=== PATIENT | female | born 1995 | race Caucasian/White ===

== ENCOUNTER 2018-03-23 09:07 | Emergency (ER) | payer BC ==
--- NOTE | 2018-03-23 09:32 | UC ---
Ear Complaint HPI - HPI Summary HPI Summary: 22-year-old woman comes to clinic today with a chief complaint of left ear pain. She's been having upper respiratory tract infection symptoms for more than 2 weeks with rhinorrhea and a mild sore throat. Both ears feel clogged the left one has become painful. No recent fevers. [id number] medications help some but overall condition is getting worse. - History of Current Complaint Chief Complaint: UCEar Stated Complaint: EAR PAIN Time Seen by Provider: 03/23/18 09:21 Hx Last Menstrual Period: 03/22/18 Pain Intensity: 3 - Allergies/Home Medications Allergies/Adverse Reactions: Allergies Allergy/AdvReac Type Severity Reaction Status Date / Time No Known Allergies Allergy Verified 03/23/18 09:20 PMH/Surg Hx/FS Hx/Imm Hx Previously Healthy: Yes - Surgical History Surgical History: None - Family History Known Family History: Positive: Non-Contributory - Social History Alcohol Use: Occasionally Substance Use Type: None Smoking Status (MU): Never Smoked Tobacco Review of Systems All Other Systems Reviewed And Are Negative: Yes Constitutional: Positive: Negative Skin: Positive: Negative Eyes: Positive: Negative ENT: Positive: Sore Throat, Ear Ache, Nasal Discharge, Sinus Congestion Respiratory: Positive: Negative Cardiovascular: Positive: Negative Gastrointestinal: Positive: Negative Motor: Positive: Negative Neurovascular: Positive: Negative Musculoskeletal: Positive: Negative Neurological: Positive: Negative Psychological: Positive: Negative Is Patient Immunocompromised?: No Physical Exam Triage Information Reviewed: Yes Appearance: Well-Appearing, No Pain Distress, Well-Nourished Vital Signs: Initial Vital Signs Temp 96.7 F 03/23/18 09:16 Pulse 100 03/23/18 09:16 Resp 20 03/23/18 09:16 BP 94/50 03/23/18 09:16 Pulse Ox 100 03/23/18 09:16 Vital Signs Reviewed: Yes Eye Exam: Normal Eyes: Positive: Conjunctiva Clear ENT: Positive: Pharyngeal erythema, Nasal congestion, Nasal drainage, TM bulging - LEFT, TM red - LEFT, Other - TONSILS 1+ WITHOUT EXUDATES Neck exam: Normal Neck: Positive: Supple Respiratory: Positive: Lungs clear, Normal breath sounds, No respiratory distress Cardiovascular: Positive: RRR Musculoskeletal Exam: Normal Musculoskeletal: Positive: Strength Intact, ROM Intact Neurological Exam: Normal Neurological: Positive: Alert, Muscle Tone Normal Psychological Exam: Normal Psychological: Positive: Age Appropriate Behavior Skin Exam: Normal Ear Complaint Course/Dx - Differential Dx/Diagnosis Provider Diagnosis: Left otitis media Discharge - Sign-Out/Discharge Documenting (check all that apply): Patient Departure All imaging exams completed and their final reports reviewed: No Studies - Discharge Plan Condition: Stable Disposition: HOME Prescriptions: Amoxicillin/Clavulanate TAB* [Augmentin TAB 875*] 875 mg PO BID #20 tab Patient Education Materials: Ear Infection (ED) Referrals: Sunday DE LA CRUZ,Sky Mandjuano [Primary Care Provider] - Additional Instructions: FOLLOW UP WITH YOUR DOCTOR IF NOT COMPLETELY IMPROVED. GET RECHECKED FOR ANY WORSENING OF YOUR CONDITION OR QUESTIONS OR CONCERNS. - Billing Disposition and Condition Condition: STABLE Disposition: Home
== END 2018-03-23 09:40 | disposition home or self-care (01) ==
LOC: UCEAST 09:07
DX: H66.92 Otitis media, unspecified, left ear (principal)
CPT/HCPCS: 99202; G0463

== ENCOUNTER 2018-10-03 19:01 | Emergency (ER) | payer BC ==
[2018-10-03 19:14] VITALS: BP 106/68
--- NOTE | 2018-10-03 19:46 | UC ---
Complaint Female HPI - HPI Summary HPI Summary: 22 yo female with mild dysurai/urgency and frequency x 1-2 weeks about 3 wks ago treated herself for a yeast infection denies vag d/c or itch sonce these symptoms started no vulvar sores - History Of Current Complaint Chief Complaint: UCGU Stated Complaint: BURNING URINATION Time Seen by Provider: 10/03/18 19:25 Hx Obtained From: Patient Hx Last Menstrual Period: 09/20/18 Onset/Duration: Gradual Onset, Lasting Weeks Timing: Constant Severity Initially: Mild Severity Currently: Mild Pain Intensity: 0 Pain Scale Used: 0-10 Numeric Character: Burning Aggravating Factor(s): Urination Associated Signs And Symptoms: Negative: Fever, Back Pain, Vaginal Bleeding/ Discharge, Vaginal Discharge, Nausea, Vomiting(# Of Episodes =), Genital Swelling, Genital Blisters, Retained Foregin Body (Specify) - Allergies/Home Medications Allergies/Adverse Reactions: Allergies Allergy/AdvReac Type Severity Reaction Status Date / Time No Known Allergies Allergy Verified 10/03/18 19:14 Home Medications: Home Medications NK [No Home Medications Reported] 10/03/18 [History Confirmed 10/03/18] PMH/Surg Hx/FS Hx/Imm Hx Previously Healthy: Yes - Surgical History Surgical History: None - Family History Known Family History: Positive: Hypertension, Non-Contributory - Social History Alcohol Use: Occasionally Substance Use Type: None Smoking Status (MU): Current Some Day Smoker Review of Systems All Other Systems Reviewed And Are Negative: Yes Constitutional: Positive: Negative Skin: Positive: Negative Eyes: Positive: Negative ENT: Positive: Negative Respiratory: Positive: Negative Cardiovascular: Positive: Negative Gastrointestinal: Positive: Negative Genitourinary: Positive: Dysuria, Frequency, Urgency Motor: Positive: Negative Neurovascular: Positive: Negative Musculoskeletal: Positive: Negative Neurological: Positive: Negative Psychological: Positive: Negative Physical Exam Triage Information Reviewed: Yes Appearance: Well-Appearing, No Pain Distress, Well-Nourished Vital Signs: Initial Vital Signs Temp 98.7 F 10/03/18 19:08 Pulse 68 10/03/18 19:08 Resp 12 10/03/18 19:08 BP 106/68 10/03/18 19:08 Pulse Ox 98 10/03/18 19:08 Vital Signs Reviewed: Yes Eyes: Positive: Conjunctiva Clear ENT: Positive: Hearing grossly normal. Negative: Nasal congestion, Nasal drainage, Tonsillar swelling, Tonsillar exudate, Trismus, Muffled voice, Hoarse voice, Uvula midline Neck: Positive: Supple, Nontender, No Lymphadenopathy Respiratory: Positive: Lungs clear, Normal breath sounds, No respiratory distress, No accessory muscle use Cardiovascular: Positive: RRR, No Murmur Abdomen Description: Positive: Nontender, No Organomegaly, Soft. Negative: CVA Tenderness (R), CVA Tenderness (L) Bowel Sounds: Positive: Present Musculoskeletal: Positive: ROM Intact, No Edema Neurological: Positive: Alert Psychological Exam: Normal Skin Exam: Normal Complaint Female Dx - Course Course Of Treatment: UA negative - Differential Dx/Diagnosis Provider Diagnosis: Dysuria Discharge - Sign-Out/Discharge Documenting (check all that apply): Patient Departure All imaging exams completed and their final reports reviewed: No Studies - Discharge Plan Condition: Stable Disposition: HOME Patient Education Materials: Dysuria (ED) Referrals: Sunday DE LA CRUZ,Sky Mandujano [Primary Care Provider] - 5 Days (if not better) Additional Instructions: Your urine looked clear a urine culture is pending as well as other tests recheck for new or worsening symptoms we will contact you if anyting turns up on your tests - Billing Disposition and Condition Condition: STABLE Disposition: Home
--- NOTE | 2018-10-04 16:59 | UC ---
- Progress Note Progress Note: + garnerella rx flagyl sent - please reviewed no ETOH 48 hours before after neg trich neg gordon Ljj Course/Dx - Diagnoses Provider Diagnoses: Dysuria Discharge - Sign-Out/Discharge Documenting (check all that apply): Post-Discharge Follow Up All imaging exams completed and their final reports reviewed: No Studies - Discharge Plan Condition: Stable Disposition: HOME Patient Education Materials: Dysuria (ED) Referrals: Sunday DE LA RCUZ,Sky Mandujano [Primary Care Provider] - 5 Days (if not better) Additional Instructions: Your urine looked clear a urine culture is pending as well as other tests recheck for new or worsening symptoms we will contact you if anyting turns up on your tests - Billing Disposition and Condition Condition: STABLE Disposition: Home
--- NOTE | 2018-10-05 14:01 | UC ---
- Progress Note Progress Note: final urine - no growth no change malorie 10/05/18 Course/Dx - Diagnoses Provider Diagnoses: Dysuria Discharge - Sign-Out/Discharge Documenting (check all that apply): Post-Discharge Follow Up All imaging exams completed and their final reports reviewed: No Studies - Discharge Plan Condition: Stable Disposition: HOME Prescriptions: metroNIDAZOLE [Flagyl] 500 mg PO BID #14 tablet Patient Education Materials: Dysuria (ED) Referrals: Sunday DE LA CRUZ,Sky Mandujano [Primary Care Provider] - 5 Days (if not better) Additional Instructions: Your urine looked clear a urine culture is pending as well as other tests recheck for new or worsening symptoms we will contact you if anyting turns up on your tests - Billing Disposition and Condition Condition: STABLE Disposition: Home
[2018-10-07 13:06] LABS: Neisseria gonorrhoeae (GC) RNA Negative (Negative)
--- NOTE | 2018-10-07 14:19 | UC ---
Course/Dx - Course Course Of Treatment: The patient has a positive test for Chlamydia. Gonorrhea is negative. Therefore the patient will be given a prescription for doxycycline 100 mg twice a day. She will be also recommended to follow with the primary care physician in the next 2 days. I will send a prescription to her pharmacy. - Diagnoses Provider Diagnoses: Chlamydia infection Discharge - Sign-Out/Discharge Documenting (check all that apply): Patient Departure All imaging exams completed and their final reports reviewed: No Studies - Discharge Plan Condition: Stable Disposition: HOME Prescriptions: DOXYcycline CAP(*) [DOXYcycline 100MG CAP(*)] 100 mg PO BID #20 cap metroNIDAZOLE [Flagyl] 500 mg PO BID #14 tablet Patient Education Materials: Dysuria (ED) Referrals: Sunday DE LA CRUZ,Sky Mandujano [Primary Care Provider] - 5 Days (if not better) Additional Instructions: Your urine looked clear a urine culture is pending as well as other tests recheck for new or worsening symptoms we will contact you if anyting turns up on your tests - Billing Disposition and Condition Condition: STABLE Disposition: Home
== END 2018-10-03 19:59 | disposition home or self-care (01) ==
LOC: UCEAST 19:01
DX: R30.0 Dysuria (principal); N76.0 Acute vaginitis; B96.89 Other specified bacterial agents as the cause of diseases classified elsewhere; A74.9 Chlamydial infection, unspecified; F17.210 Nicotine dependence, cigarettes, uncomplicated
CPT/HCPCS: 81003; 87086; 87480; 87491; 87510; 87591; 87660; 99211; G0463